=== PATIENT | female | born 1965 | race African-American/Black ===

== ENCOUNTER 2018-04-05 16:57 | Emergency (ER) | payer MEDICARE ==
[~2018-04-05] VITALS: Ht 165.1 cm; Wt 59.1 kg
[2018-04-05] MEDS ORDERED: LEVO75 PO (17:17)
[2018-04-05 18:30] VITALS: BP 148/96
== END 2018-04-05 19:34 | disposition home or self-care (01) ==
LOC: EMS 17:00
DX: M54.2 Cervicalgia (principal); M54.9 Dorsalgia, unspecified; R51 Headache; R11.0 Nausea; Z86.73 Personal history of transient ischemic attack (TIA), and cerebral infarction without residual deficits; E03.9 Hypothyroidism, unspecified; V49.49XA Driver injured in collision with other motor vehicles in traffic accident, initial encounter; Y93.89 Activity, other specified; Y92.488 Other paved roadways as the place of occurrence of the external cause; Y99.8 Other external cause status
CPT/HCPCS: 70450; 72125; 72170; 99284